=== PATIENT | female | born 1995 | race Caucasian/White ===

== ENCOUNTER 2016-09-07 00:13 | Emergency (ER) | payer OTHER ==
[2016-09-07] MEDS ORDERED: Morphine INJ* 4 MG/ML 1 ML SYRINGE IV ONE (01:33)
[2016-09-07] MEDS ORDERED: Ondansetron INJ* 2 MG/ML VIAL IV ONE (01:33)
[2016-09-07] MEDS ORDERED: Pantoprazole IV* 40 MG IV ONE (01:33)
[2016-09-07] MEDS ORDERED: NS 0.9% 1000 ML* 1,000 ML IV ONE (01:33)
[2016-09-07 02:00] LABS: Hematocrit 38 % (35-47); Hemoglobin 12.9 g/dl (12.0-16.0); Mean Corpuscular HGB Conc 34 g/dl (31-36); Mean Corpuscular Hemoglobin 32 pg (27-31); Mean Corpuscular Volume 94 fL (80-97); Mean Platelet Volume 8 um3 (7.4-10.4); Red Blood Count 3.99 10^6/ul (4.0-5.4); Red Cell Distribution Width 12 % (10.5-15); White Blood Count 6.5 10^3/ul (3.5-10.8)
[2016-09-07 02:15] LABS: ALT 12 U/L (7-52); AST 17 U/L (13-39); Albumin 4.2 g/dL (3.2-5.2); Alkaline Phosphatase 48 U/L (34-104); Anion Gap 3 mmol/L (2-11); BUN/Creatinine Ratio 13.6 (8-20); Blood Urea Nitrogen 12 mg/dL (6-24); C Reactive Protein < 1.00 mg/L (< 5.00); CO2 Carbon Dioxide 30 mmol/L (22-32); Calcium 9.6 mg/dL (8.6-10.3); Chloride 101 mmol/L (101-111); EGFR African American 102.4 (>60); EGFR Non-African American 79.6 (>60); Globulin 2.4 g/dL (2-4); Glucose 90 mg/dL (70-100); Lipase 23 U/L (11.0-82.0); Potassium 3.7 mmol/L (3.5-5.0); Sodium 134 mmol/L (133-145); Total Protein 6.6 g/dL (6.4-8.9)
--- NOTE | 2016-09-07 03:51 | ED ---
Genaro Ghosh Benjamin, scribed for Bianca Duval MD on 09/07/16 at 0315 . Abdominal Pain/Female - HPI Summary HPI Summary: 21yo female Pt states that she has had aching left neck pain that she has had for 3 days and today it has gotten worse. Pt reports limited neck ROM due to the pain. Pt is also c/o pain in her upper stomach area. Eating and drinking do not make it worse or better. Took Advil yesterday for pain. Caffeine intake has increased recently. - History of Current Complaint Chief Complaint: EDAbdPain Stated Complaint: NECK PAIN RIGHT SIDE/UPPER ABD PAIN Hx Obtained From: Patient Onset/Duration: Lasting Days - 3 days, Still Present, Worse Since - progressing Timing: Seconds Severity Initially: Mild Severity Currently: Moderate Pain Intensity: 7 Location: Epigastric Radiates: No Aggravating Factor(s): Nothing Alleviating Factor(s): Nothing Associated Signs and Symptoms: Positive: Other: - neck pain Allergies/Adverse Reactions: Allergies Allergy/AdvReac Type Severity Reaction Status Date / Time No Known Allergies Allergy Unverified 11/07/13 14:05 PMH/Surg Hx/FS Hx/Imm Hx Endocrine/Hematology History: 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 Denies: Hx Diabetes Cardiovascular History: Denies: Hx Congestive Heart Failure, Hx Hypertension Infectious Disease History: No Infectious Disease History: Denies: Traveled Outside the [place] in Last 30 Days - Family History Known Family History: Positive: Cardiac Disease, Hypertension, Other - Depression, OCD Negative: Diabetes, Renal Disease - Social History Occupation: Student Lives: Alone Alcohol Use: Weekly Substance Use Type: Reports: None Smoking Status (MU): Never Smoked Tobacco Review of Systems Constitutional: Negative Eyes: Negative ENT: Negative Cardiovascular: Negative Respiratory: Negative Positive: Abdominal Pain - epigastric. Negative: Vomiting, Diarrhea, Nausea Genitourinary: Negative Positive: Arthralgia - neck pain Skin: Negative Neurological: Negative Psychological: Normal All Other Systems Reviewed And Are Negative: Yes Physical Exam Triage Information Reviewed: Yes Vital Signs On Initial Exam: Initial Vitals Temp Pulse Resp BP Pulse Ox 97.9 F 87 16 117/78 99 09/07/16 00:18 09/07/16 00:18 09/07/16 00:18 09/07/16 00:18 09/07/16 00:18 Vital Signs Reviewed: Yes Appearance: Positive: Well-Appearing, No Pain Distress, Well-Nourished Skin: Positive: Warm, Skin Color Reflects Adequate Perfusion, Dry Head/Face: Positive: Normal Head/Face Inspection Eyes: Positive: EOMI, WU ENT: Positive: Hearing grossly normal, Pharynx normal, TMs normal Neck: Positive: Nuchal Rigidity, Tenderness @ - Multiple spasmodic areas of the neck, Other: - Multiple spasmodic areas of the neck Respiratory/Lung Sounds: Positive: Clear to Auscultation, Breath Sounds Present. Negative: Rales, Rhonchi Cardiovascular: Positive: RRR. Negative: Murmur Abdomen Description: Positive: Soft, Other: - epigastric. Negative: Distended, Guarding Bowel Sounds: Positive: Present Musculoskeletal: Positive: Strength/ROM Intact Neurological: Positive: Sensory/Motor Intact, Alert, Oriented to Person Place, Time, CN Intact II-III Psychiatric: Negative: Affect/Mood Appropriate - Angela Coma Scale Coma Scale Total: 15 Diagnostics - Vital Signs Vital Signs Temp Pulse Resp BP Pulse Ox 09/07/16 02:47 80 16 99/59 09/07/16 01:59 68 16 98 09/07/16 01:46 16 09/07/16 00:18 97.9 F 87 16 117/78 99 - Laboratory Lab Results: Lab Results 09/07/16 09/07/16 Range/Units 01:47 01:47 WBC 6.5 (3.5-10.8) 10^3/ul RBC 3.99 L (4.0-5.4) 10^6/ul Hgb 12.9 (12.0-16.0) g/dl Hct 38 (35-47) % MCV 94 (80-97) fL MCH 32 H (27-31) pg MCHC 34 (31-36) g/dl RDW 12 (10.5-15) % Plt Count 197 (150-450) 10^3/ul MPV 8 (7.4-10.4) um3 Neut % (Auto) 43.0 (38-83) % Lymph % (Auto) 48.8 H (25-47) % Allen % (Auto) 6.7 (1-9) % Eos % (Auto) 1.0 (0-6) % Baso % (Auto) 0.5 (0-2) % Absolute Neuts (auto) 2.8 (1.5-7.7) 10^3/ul Absolute Lymphs (auto) 3.2 (1.0-4.8) 10^3/ul Absolute Monos (auto) 0.4 (0-0.8) 10^3/ul Absolute Eos (auto) 0.1 (0-0.6) 10^3/ul Absolute Basos (auto) 0 (0-0.2) 10^3/ul Absolute Nucleated RBC 0 10^3/ul Nucleated RBC % 0 Sodium 134 (133-145) mmol/L Potassium 3.7 (3.5-5.0) mmol/L Chloride 101 (101-111) mmol/L Carbon Dioxide 30 (22-32) mmol/L Anion Gap 3 (2-11) mmol/L BUN 12 (6-24) mg/dL Creatinine 0.88 (0.51-0.95) mg/dL Est GFR ( Amer) 102.4 (>60) Est GFR (Non-Af Amer) 79.6 (>60) BUN/Creatinine Ratio 13.6 (8-20) Glucose 90 (70-100) mg/dL Calcium 9.6 (8.6-10.3) mg/dL Total Bilirubin 0.30 (0.2-1.0) mg/dL AST 17 (13-39) U/L ALT 12 (7-52) U/L Alkaline Phosphatase 48 (34-104) U/L C-Reactive Protein < 1.00 (< 5.00) mg/L Total Protein 6.6 (6.4-8.9) g/dL Albumin 4.2 (3.2-5.2) g/dL Globulin 2.4 (2-4) g/dL Albumin/Globulin Ratio 1.8 (1-3) Lipase 23 (11.0-82.0) U/L Beta HCG, Quant Pending Result Diagrams: 09/07/16 01:47 09/07/16 01:47 Lab Statement: Any lab studies that have been ordered have been reviewed, and results considered in the medical decision making process. Abdominal Pain Fem Course/Dx - Course Course Of Treatment: trigger points on neck on right periscapular for the most point and epigastric pain much better after flexeril and meds for gastritis. Ok to go, - Diagnoses Provider Diagnoses: Gastritis, Cervical muscle strain Discharge - Discharge Plan Condition: Stable Disposition: HOME Prescriptions: Cyclobenzaprine TAB* [Flexeril 10 MG TAB*] 10 mg PO TID PRN #30 tab PRN Reason: Spasms Omeprazole CAP* [Prilosec CAP* 20 MG] 20 mg PO DAILY #14 cap.dr Patient Education Materials: Gastritis (ED), Cervical Strain (ED) Referrals: Adonis Rasheed, SOLID SURFACE FABRICATOR [Primary Care Provider] - The documentation as recorded by the Genaro ryder Benjamin accurately reflects the service I personally performed and the decisions made by me, Bianca Duval MD.
[2016-09-07 03:55] VITALS: BP 98/63
== END 2016-09-07 03:54 | disposition home or self-care (01) ==
LOC: ED 00:13
DX: K29.70 Gastritis, unspecified, without bleeding (principal); S16.1XXA Strain of muscle, fascia and tendon at neck level, initial encounter; M54.2 Cervicalgia; R10.13 Epigastric pain; X58.XXXA Exposure to other specified factors, initial encounter; Y93.9 Activity, unspecified; Y92.9 Unspecified place or not applicable; Y99.8 Other external cause status
CPT/HCPCS: 36415; 80053; 83690; 84702; 85025; 86140; 99283; J2270; J2405

== ENCOUNTER 2018-10-23 07:02 | Emergency (ER) | payer OTHER ==
[2018-10-23 07:14] VITALS: BP 99/59
--- NOTE | 2018-10-23 07:24 | UC ---
Hand/Wrist HPI - HPI Summary HPI Summary: 23 yo female 3 weeks s/p injuring Right Ring Finger after slipping and falling on stairs at home She is right handed since injury has been unable to extend at DIP and has decreased flexion at DIP Initially had significant swelling and bruising skin not broken du to injury - History Of Current Complaint Chief Complaint: UCUpperExtremity Stated Complaint: FINGER INJURY Time Seen by Provider: 10/23/18 07:18 Hx Obtained From: Patient Hx Last Menstrual Period: 2 weeks ago, has implant Onset/Duration: Sudden Onset Severity Initially: Moderate Severity Currently: Mild Pain Intensity: 3 Pain Scale Used: 0-10 Numeric Character Of Pain: Dull, Aching Aggravating Factor(s): Movement Alleviating Factor(s): Rest Associated Signs And Symptoms: Positive: Swelling Related History: Dominant Hand Right, Other: - decreased ROM - Allergies/Home Medications Allergies/Adverse Reactions: Allergies Allergy/AdvReac Type Severity Reaction Status Date / Time Antifungal - Imidazole Allergy See Comment Verified 10/23/18 07:14 Home Medications: Home Medications Dextroamphetamine/Amphetamine [Adderall 20 mg Tablet] 1 tab PO DAILY 10/23/18 [ History Confirmed 10/23/18] Sertraline* [Zoloft*] 50 mg PO DAILY 10/23/18 [History Confirmed 10/23/18] PMH/Surg Hx/FS Hx/Imm Hx Previously Healthy: Yes - Surgical History Surgical History: None - Family History Known Family History: Positive: Cardiac Disease, Hypertension, Other - Depression, OCD Negative: Diabetes, Renal Disease - Social History Alcohol Use: Occasionally Substance Use Type: None Smoking Status (MU): Never Smoked Tobacco Review of Systems All Other Systems Reviewed And Are Negative: Yes Constitutional: Positive: Negative Skin: Positive: Bruising - initially Eyes: Positive: Negative ENT: Positive: Negative Respiratory: Positive: Negative Cardiovascular: Positive: Negative Gastrointestinal: Positive: Negative Genitourinary: Positive: Negative Musculoskeletal: Positive: Arthralgia - RIF, Decreased ROM - RIF Neurological: Positive: Negative Psychological: Positive: Negative Physical Exam Triage Information Reviewed: Yes Appearance: Well-Appearing, No Pain Distress, Well-Nourished Vital Signs: Initial Vital Signs Temp 98.3 F 10/23/18 07:09 Pulse 82 10/23/18 07:09 Resp 16 10/23/18 07:09 BP 99/59 10/23/18 07:09 Pulse Ox 96 10/23/18 07:09 Vital Signs Reviewed: Yes Eyes: Positive: Conjunctiva Clear ENT: Positive: Hearing grossly normal, Uvula midline. Negative: Nasal congestion, Nasal drainage, Trismus, Muffled voice, Hoarse voice Dental Exam: Normal Neck: Positive: Supple Respiratory: Positive: Lungs clear, Normal breath sounds, No respiratory distress, No accessory muscle use Cardiovascular: Positive: RRR, No Murmur Musculoskeletal: Positive: ROM Limited @ - RIF DIP, Edema @ - DP RIF, Other: - mallet finger deformity RIF Neurological: Positive: Alert Psychological Exam: Normal Skin Exam: Normal Images Hands: 1 - swollen, unable to passively extend , skin intact Procedures - Splinting Right Upper Extremity Location: RIGHT INDEX FINGER DIP Pre-Made Type: #4 STAX splint Splint: see above Pre-Proc Neuro Vasc Exam: normal Post-Proc Neuro Vasc Exam: normal Splint Applied by Provider: Wayne Holley Diagnostics - Radiology No standard instances Radiology Interpretation Completed By: Radiologist Summary of Radiographic Findings: right index finger: Dorsal plate fracture proximal end distal phalanx of the index finger Hand/Wrist Course/Dx - Differential Dx/Diagnosis Provider Diagnosis: Closed mallet fracture of distal phalanx of right index finger Discharge ED - Sign-Out/Discharge Documenting (check all that apply): Patient Departure All imaging exams completed and their final reports reviewed: Yes - Discharge Plan Condition: Stable Disposition: HOME Patient Education Materials: Jammed Finger (ED) Referrals: Lilia Kemp MD [Medical Doctor] - As Soon As Possible Additional Instructions: you have a MALLET FINGER DEFORMITY from a fracture that occurred involving the distal phalanx of the right index finger you need to follow up with an orthopedist as this may need surgical repait wear splint and if you need to change it use the technique discussed - Billing Disposition and Condition Condition: STABLE Disposition: Home
== END 2018-10-23 07:53 | disposition home or self-care (01) ==
LOC: UCEAST 07:02
DX: S62.630A Displaced fracture of distal phalanx of right index finger, initial encounter for closed fracture (principal); W10.9XXA Fall (on) (from) unspecified stairs and steps, initial encounter; Y92.019 Unspecified place in single-family (private) house as the place of occurrence of the external cause
CPT/HCPCS: 73140; 99211; G0463

== ENCOUNTER 2018-11-08 08:12 | Day surgery (SDC) | payer OTHER ==
[~2018-11-08 08:12] MED LIST: Buffered Lidocaine 1% SYRIN* 1 ML/SYRINGE INTRADERM ONE; Famotidine IV* 10 MG/ML 2 ML (20 mg) IV ONE; Famotidine IV* 10 MG/ML 2 ML (20 mg) ONE; Lactated Ringers 1000 ML Bag* 1,000 ML IV SCH; ceFAZolin 2 GM PREMIX in ORs 2 GM/50 ML BAG ONE
[2018-11-08] MEDS ORDERED: Midazolam* 1 MG/ML 5 ML VIAL (5 MG) ONE (08:37)
[2018-11-08] MEDS ORDERED: Naloxone* 0.4 MG/ML 1 ML VIAL IV PRN (09:49)
[2018-11-08] MEDS ORDERED: oxyCODONE TAB* 5 MG TAB PO PRN (09:49)
[2018-11-08] MEDS ORDERED: Acetaminophen TAB* 325 MG PO PRN (09:49)
[2018-11-08] MEDS ORDERED: HYDROmorphone INJ1* 1 MG/ML SYRINGE ONE (10:08)
[2018-11-08] MEDS ORDERED: Lidocaine 1% INJ* 10 MG/ML 30 ML SDV ONE (10:17)
[2018-11-08] MEDS ORDERED: Propofol* 10 MG/ML 20 ML BTL ONE ×2 (10:19→10:51)
[2018-11-08] MEDS ORDERED: Lidocaine 2% PF * 5 ML VIAL ONE (10:19)
[2018-11-08] MEDS ORDERED: Ketorolac INJ* 30 MG/ML 1 ML VIAL ONE (10:19)
[2018-11-08] MEDS ORDERED: Dexamethasone IV* 4 MG/ML 1 ML (4 MG) ONE (10:19)
[2018-11-08] MEDS ORDERED: Ondansetron INJ* 2 MG/ML VIAL ONE (10:19)
[2018-11-08 11:42] VITALS: BP 111/75
--- NOTE | 2018-11-08 15:40 | OP ---
OPERATIVE NOTE: DATE OF OPERATION: 11/08/18 DATE OF : 89 SURGEON: Tate Sharma MD STUDENT FINANCE SPECIALIST: COREY Chou A physician financial planning assistant was required for patient positioning, instrumentation. ANESTHESIOLOGIST: Dr. Santa Vaughn. ANESTHESIA: LMA general anesthesia, local anesthesia, digital nerve block using lidocaine 1% without epinephrine. PRE-OP DIAGNOSIS: Right index finger bony mallet dorsal base of distal phalanx fracture, subacute or chronic. POST-OP DIAGNOSIS: Right index finger bony mallet dorsal base of distal phalanx fracture, subacute or chronic. OPERATIVE PROCEDURE: Closed reduction percutaneous pinning of right index finger distal phalanx bony mallet fracture. ANTIBIOTICS: 2 g Ancef IV. IV FLUIDS: See anesthesia note. SPECIMEN: None. IMPLANTS: Synthes K-wires. Two K-wires of size 0.045 were used. One K-wire of size 0.035 was used. PROCEDURE TIME: Approximately 35 minutes. TOURNIQUET TIME: Approximately 25-31 minutes using a finger tourniquet COMPLICATIONS: None. ESTIMATED BLOOD LOSS: Minimal. 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 There was a delay in her seeking medical attention. The patient eventually was seen at urgent care in the emergency room on 10/23/18 and then she presented to our clinic on approximately 11/02/18. The patient was noted to have a displaced bony mallet fracture. There might have been some trace subluxation, but no significant subluxation of the DIP joint. Discussed treatment, namely closed reduction percutaneous pinning using extension block technique versus open reduction internal fixation. Described some pros and cons of each technique. My plan was to close reduce and percutaneous pin if that was feasible and that technique was the patient's preference as well. Discussed risks and potential complications of surgery including bleeding, infection, nerve or blood vessel, PIP joint swelling, lag, stiffness, pain, loss of function, failure of hardware, need for removal of hardware surgically. Discussed postoperative limitations and restrictions. It should be stated the patient was notable for being very ligamentously lax, especially in the fingers. Multiple fingers throughout the patient's hand are capable of some swan neck hyperextension of the PIP joint. This was inclusive of the right index finger. DESCRIPTION OF PROCEDURE: In preoperative holding, the patient signed a written consent. I reviewed the relevant anatomy with some drawings. The patient's operative finger was marked with a marking pen. The patient was brought into the operating room and kept on stretcher. LMA anesthesia. Tourniquet was placed about the right upper arm but never inflated. Hand table was applied. Right upper extremity was prepped and draped. Surgical time-out performed. Mini C-arm image was taken. It showed that just full extension of the DIP joint did not reduce the fracture. I next located the fracture site with an 18-gauge needle from the dorsal radial side and placed that into the fracture site to debride some fibrotic tissue. I decided the 18-gauge was a little bit large for the patient's small fingers, so I used a 20-gauge needle, placed it into the fracture site, and moved it back and forth debriding any fibrous tissue that had accumulated over the last 6 weeks. Early in the procedure, I had a couple drops of blood exit the skin, so I placed a Tourni-Cot. I next fully flexed the DIP joint. I placed a K-wire from dorsal to volar, the so- called extension blocking pin. I placed it bicortically. I fully hyperextended the DIP joint, which I believe made that pin move slightly in bone. I think initially it had a steep trajection, closer to perhaps 20 to 30 degrees with the middle phalanx shaft. With a little bit of movement, it became more 45 degrees. With extension of the distal phalanx against the pin, the fracture site fully reduced. I next extended the DIP joint fully, although I tried to avoid too much hyperextension, which was certainly possible. I then placed a second K-wire, 0.045 in size, across the DIP joint. It crossed the middle phalanx head and then exited the bone. AP, lateral, and oblique views showed excellent reduction. There might have been much less than 1 mm of displacement, but in order to improve my reduction even more, I used a smaller K-wire, 0.035 in size , and placed it across the fracture site. It ended up slightly distal to the fracture site, but appeared to hold the fracture in even more reduced position. I liked my reduction. Final mini C-arm films were obtained. Very congruent subchondral bone on lateral view. The pins were cut and pin caps were placed. A Xeroform, 2x2's, Kerlix, then Coban. I then placed an Alumafoam volar splint with the DIP joint fully extended , but the PIP joint flexed. This was intentional, to immobilize the PIP joint, that we do not normally immobilize, given the patient's swan necking preoperatively. The patient was awakened, extubated, and transferred to the PACU. DISPOSITION: The patient was discharged home with Clarion as needed for pain control and 7 days of oral antibiotics. The patient will follow up with me next week in clinic. We will obtain x-rays at that clinic visit. The patient is to maintain the operative dressing until she follows up in clinic. She is not to use that hand for work. [id number]/CPS #: [id number] MTDD
== END 2018-11-08 12:41 | disposition home or self-care (01) ==
LOC: OR 08:12
PROVIDERS: ATTEND Orthopaedic Surgery
DX: S62.630A Displaced fracture of distal phalanx of right index finger, initial encounter for closed fracture (principal); W19.XXXA Unspecified fall, initial encounter; Y92.9 Unspecified place or not applicable; Z72.0 Tobacco use; F41.8 Other specified anxiety disorders; F31.9 Bipolar disorder, unspecified
CPT/HCPCS: 76000; 81025; C1776; J0690; J1100; J1170; J1885; J2250; J2405; J2704

== ENCOUNTER → 2018-12-29 11:09 | Day surgery (SDC) | payer OTHER ==
[~2018-12-29 11:09] MED LIST changes: +Dexamethasone IV* 4 MG/ML 1 ML (4 MG) IV SLOW PU ONE; +Dexamethasone IV* 4 MG/ML 1 ML (4 MG) ONE; +DiMENhydriNATE IV* 50 MG/ML VIAL IV PUSH PRN; +KETAMINE HCL* 50 MG/ML 10 ML VIAL ONE; +Ketorolac INJ* 30 MG/ML 1 ML VIAL ONE; +Lidocaine 1% INJ* 10 MG/ML 30 ML SDV ONE; +Lidocaine 2% PF * 5 ML VIAL ONE; +Midazolam* 1 MG/ML 2 ML VIAL (2 MG) ONE; +Midazolam* 1 MG/ML 5 ML VIAL (5 MG) ONE; +Naloxone* 0.4 MG/ML 1 ML VIAL IV PRN; +Ondansetron INJ* 2 MG/ML VIAL ONE; +Phenylephrine 40 MCG/ML SYRINGE ONE; +Propofol* 10 MG/ML 20 ML BTL ONE; +Scopolamine 1.5 mg* PATCH TRANSDERM PRN; -ceFAZolin 2 GM PREMIX in ORs 2 GM/50 ML BAG ONE; +ceFAZolin 2 GM in NS PREMIX(*) 2 GM/100 ML BAG IVPB ONE; +fentaNYL* 50 MCG/ML 2 ML VIAL (100 MCG VIAL) IV PRN; +fentaNYL* 50 MCG/ML 2 ML VIAL (100 MCG VIAL) ONE; +fentaNYL* 50 MCG/ML 5 ML VIAL (250 MCG VIAL) ONE; +oxyCODONE/Acetamin 5/325 MG* TAB ONE; +oxyCODONE/Acetamin 5/325 MG* TAB PO PRN
[2018-12-29] MEDS: Ondansetron INJ* 2 MG/ML VIAL IV PRN ×2 (12:39→20:33)
[2018-12-29 21:23] VITALS: BP 122/74
--- NOTE | 2018-12-31 05:02 | OP ---
OPERATIVE REPORT: DATE OF OPERATION: 12/29/18 DATE OF : 89 SURGEON: Tate Sharma MD. AUDIT CLERKS SUPERVISOR: COREY Forte A physician therapy assistant was required for the length of the procedure for assistance with patient positi oning, retraction, and closure. ANESTHESIOLOGIST: Dr. Zeyad Marsh. ANESTHESIA: General anesthesia, local anesthesia using 5 cc of lidocaine 1% without epinephrine. PRE-OP DIAGNOSES: 1. 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 2. Status post closed reduction percutaneous pinning procedure right index finger distal phalanx, . POST-OP DIAGNOSES: 1. 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 2. Status post closed reduction percutaneous pinning procedure right index finger distal phalanx, . PROCEDURE: Open reduction internal fixation right index finger distal phalanx avulsion fracture. ANTIBIOTICS: Ancef 2 g IV. IV FLUIDS: See anesthesia note. SKIN TO SKIN TIME: 69 minutes. TOURNIQUET TIME: 72 minutes right upper arm tourniquet, 250 mmHg. RADIATION: Mini C-arm use. EXPOSURE TIME: Not recorded by me. SPECIMEN: None. IMPLANT: [employer] 1 hole claw plate for bony mallet injuries with a 1.2 mm screw through. COMPLICATIONS: None. ESTIMATED BLOOD LOSS: Minimal. INDICATIONS FOR PROCEDURE: The patient is a 23-year-old woman, who first presented to me subacutely for a right index finger bony mallet finger injury. It occurred early in September and she presented ap proximately 6 weeks later on 11/02/18 in clinic. At that time, I discussed operative and nonoperativ e treatment. I discussed closed reduction percutaneous pinning or open reduction internal fixation a nd the pros and cons of each as well as risks and benefits of procedure. On 11/08/18, the patient underwent a successful closed reduction percutaneous pinning procedure. Thi s surgical option was chosen both because it was less invasive and closed reduction was feasible as w ell as the patient preference. At the time of that surgical procedure we discussed possible risk of failure of fixation or reduction and need for revision surgery. The patient had an uncomplicated postoperative course after that procedure. She banged her finger se veral times, but that often happens. She wore her brace that she was supposed to. One of the pins c erika out at home. I left the pins intact for approximately 5 weeks. After the pins were removed the patient described a extensor lag and spoken to the patient pre and postoperatively about reduction of range of motion with either surgical procedure. The patient described much continued pain about the DIP joint and x-rays obtained at the patient's most recent clinic visit showed loss of reduction and no sign of definitive bony union. There did certainly seem to be some element of hazy callus-like m aterial about the fracture site. We discussed a continued observation. The patient did have active extension present at the DIP joint, so I thought it is feasible that this might continue to a nonpain ful fibrous union or a bony union eventually. However, given the significant being 1 mm or so amount of offset and the pain, the patient favored the more definitive surgical procedure, open reduction i nternal fixation. I discussed pros and cons and procedure as well as risks and potential complications. Risks and pote ntial complications include other standard bleeding, infection, nerve or blood vessel injury. More s pecific to the surgery they involve altered nail plate growth, a prominent painful hardware, need for removal of hardware, loss of reduction and fixation. Given the chronicity of this injury now 3 months from the initial injury and described needing to yohana e down some fibrous union that the case would be more complicated for that reason. DESCRIPTION OF PROCEDURE: In preoperative holding the patient signed the written consent. Operative finger was marked in preoperative holding. Due to an instrumentation sterility problem, there was a delay in the start of the case for multiple hours but that was worked out and we brought the patient back to the operating room. The patient was brought back to the operating room and kept on stretcher. Hand table was applied. P james was sedated and intubated. Tourniquet was placed about the right upper arm. Right upper extr emity was prepped and draped. Surgical timeout was performed. Esmarch was applied and tourniquet wa s elevated to 250 mmHg. I made my skin incision. I started with an S-shaped incision with the transverse limb about the exte nsor crease at the level of the DIP joint and a proximal ulnar and distal radial legs to that S. Lat er I extended a leg of that incision distal on ulna. This made this incision a hybrid of an S and an H-shaped incision, less invasive than an H-shaped incision. I incised skin only, careful not to disrupt extensor tendon. Bovie electrocautery was not required a nd dissected along the extensor tendon. The extensor tendon itself looked fully intact including usi ng my loupes for visualization. Used mini C-arm to identify the location in the extensor mechanism of the avulsed bony fragment. Bimal ntified a spot just distal to this. Dissected as atraumatically as possible distal to this bony frag ment. This level transversely was just 1 mm or so proximal to the germinal matrix. I dissected down to the bone distally and pealed up the periosteum and germinal matrix distally, so as to minimally d isrupt the general matrix. With regards to the fracture I debrided some fibrous tissue with a micro curette along with a [place]. Dissected maximally free that bony avulsion fracture fragment. I next reduced the bony fragment. Considered a pointed fracture a clamp but did not want to destroy the small avulsed bony fragment. Then I used my fingers to manipulate the fragment and most optimall y reduce it. This was the most difficult part of the case. When the reduction was adequate I placed a 0.035 K-wire across the fracture site, from dorsal to volar. The reduction was not perfect but wa s good enough for placement now of the plate. With the K-wire holding provisional reduction, I situa raiza the plate. I utilized the mini C-arm to determine when the plate was sufficiently proximal dista l located as well as central. The plate was placed. I drilled eccentrically with a 1-mm drill and nel perez placed a screw. As I was advancing the screw I removed the K-wire, so that the K-wire reduction would not inhibit the best possible plate reduction. Plate was brought down nicely to bone. I took mini C-arm images. They showed screw to be nicely bicortical, but not overly prominent volarl y. They showed plate flat on bone. They showed the proximal claws of the plate to be directly on th e avulsed bony fragment. There was some concern that those prongs could interfere with the DIP joint and the head of the middle phalanx. However that claw plate could not be placed any more distal jemal n it was so I was happy with that position. While the reduction of the fracture fragment was not perfect, it was excellent, with bone apposed per fectly to bone and a minimum of step off. The reduction with plate obtained was certainly superior t o any provisional reduction obtained during the case. This is likely due at least to some degree bec ause of the mismatch between the 2 fracture fragments given the 3 months that have transpired since i kaylah. I took x-rays AP and lateral that confirmed excellent placement of hardware and excellent reduction. The finger visually looked very nicely extended. Irrigation of wound. I should state that early in the case after I incised the skin, I had retracted the skin edges with s imple stitches using nylon 6.0 suture. This afforded us excellent exposure. At this point in the ca se I cut the stitches. I then closed the skin with simple stitches using nylon 4.0 sutures. I next took several final x-ray images. I injected local anesthesia, 5 cc of 1% lidocaine without epinephrine about the digital ner ves as well as in the flexor tendon sheath to the index finger. Xeroform, 2x2's, one-inch Kerlix, finger splint followed by another [place]. Patient was awake and ext ubated and transferred to the PACU. DISPOSITION: The patient was discharged home when medically stable. Oxycodone for pain. Dressing i ntact for 3 days. The patient will wear a finger splint at all times to keep that finger straight to facilitate healing. The patient will follow up with me in 10-14 days postoperatively. She starts a new job 3 days postoperatively and she can call me with any questions or concerns. [id number]/[facility] #: [id number]
== END | disposition home or self-care (01) ==
LOC: OR 11:09
PROVIDERS: ATTEND Orthopaedic Surgery
DX: S62.630P Displaced fracture of distal phalanx of right index finger, subsequent encounter for fracture with malunion (principal); M20.011 Mallet finger of right finger(s); W19.XXXD Unspecified fall, subsequent encounter; Y92.9 Unspecified place or not applicable; F17.210 Nicotine dependence, cigarettes, uncomplicated; F43.10 Post-traumatic stress disorder, unspecified; F31.9 Bipolar disorder, unspecified; F90.9 Attention-deficit hyperactivity disorder, unspecified type
CPT/HCPCS: 81025; A9270-GY; C1713; C1776; J0690; J1100; J1885; J2250; J2405; J2704; J3010

== ENCOUNTER 2022-09-21 20:32 | Inpatient (IN) ==
[2022-09-21] MEDS ORDERED: Haloperidol 5 mg/ml SDV IV/IM 5 MG/ML AMP IM PRN (23:19)
[2022-09-21] MEDS ORDERED: LORazepam 2 mg VIAL 1 ml IM PRN (23:22)
[2022-09-21] MEDS ORDERED: Lorazepam PYXIS KEY PRN (23:22)
[2022-09-22] MEDS ORDERED: LORazepam 2 mg VIAL 1 ml IV PUSH ONE (08:28)
[2022-09-22] MEDS ORDERED: Lorazepam PYXIS KEY PRN (08:28)
[2022-09-22] MEDS ORDERED: LORazepam 2 mg VIAL 1 ml ONE (08:34)
[2022-09-22] MEDS: OLANZapine 5 mg TAB *ODT PO SCH ×2 (20:23→21:11)
[2022-09-23] MEDS: Nicotine GUM 4MG FRUIT FLAVOR PO PRN ×3 (15:36→19:21)
[2022-09-23] MEDS ORDERED: Nicotine GUM 4MG FRUIT FLAVOR PO ONE (15:36)
[2022-09-23] MEDS: OLANZapine 5 mg TAB *ODT PO SCH (19:29)
[2022-09-24] MEDS: Nicotine GUM 4MG FRUIT FLAVOR PO PRN ×2 (08:40→15:12)
[2022-09-24] MEDS ORDERED: OLANZapine 10 mg TAB*ODT PO STA (10:40)
[2022-09-24] MEDS ORDERED: Nicotine PATCH 21 MG/24 HR PATCH ONE (11:32)
[2022-09-24] MEDS: Nicotine PATCH 21 MG/24 HR PATCH TRANSDERM SCH (14:14)
[2022-09-24] MEDS ORDERED: OLANZapine 5 mg TAB *ODT PO PRN (14:39)
[2022-09-24] MEDS ORDERED: chlorproMAZINE 25 MG/ML 2 ML (50 MG) IM STA (15:23)
[2022-09-24] MEDS ORDERED: chlorproMAZINE 25 MG/ML 2 ML (50 MG) ONE (15:25)
[2022-09-25] MEDS: OLANZapine 10 mg TAB*ODT PO SCH ×2 (00:36→19:41)
[2022-09-25] MEDS: Nicotine PATCH 21 MG/24 HR PATCH TRANSDERM SCH (08:22)
[2022-09-25] MEDS: Nicotine GUM 4MG FRUIT FLAVOR PO PRN ×3 (11:44→20:23)
[2022-09-26] MEDS: Nicotine PATCH 21 MG/24 HR PATCH TRANSDERM SCH (07:11)
[2022-09-26] MEDS: Nicotine GUM 4MG FRUIT FLAVOR PO PRN ×6 (07:13→22:06)
[2022-09-26] MEDS: OLANZapine 10 mg TAB*ODT PO SCH (20:14)
[2022-09-27] MEDS: Nicotine GUM 4MG FRUIT FLAVOR PO PRN ×5 (05:39→20:35)
[2022-09-27] MEDS: Nicotine PATCH 21 MG/24 HR PATCH TRANSDERM SCH (07:35)
[2022-09-27] MEDS: OLANZapine 10 mg TAB*ODT PO SCH (20:15)
[2022-09-28] MEDS: Nicotine PATCH 21 MG/24 HR PATCH TRANSDERM SCH (07:47)
[2022-09-28 08:14] LABS: HDL Cholesterol 59.2 mg/dL
[2022-09-28] MEDS: Al Hydrox/Mg Hydrox/Simet LIQ 30 ML UDC PO PRN (08:40)
[2022-09-28] MEDS: Nicotine GUM 4MG FRUIT FLAVOR PO PRN ×4 (08:40→17:25)
[2022-09-28 10:51] LABS: Lithium 0.29 mmol/L (0.6-1.2)
[2022-09-28] MEDS: OLANZapine 10 mg TAB*ODT PO SCH (20:25)
[2022-09-29] MEDS: Nicotine PATCH 21 MG/24 HR PATCH TRANSDERM SCH (07:34)
[2022-09-29] MEDS: Nicotine GUM 4MG FRUIT FLAVOR PO PRN ×4 (07:35→16:41)
[2022-09-29] MEDS: Al Hydrox/Mg Hydrox/Simet LIQ 30 ML UDC PO PRN (07:49)
[2022-09-29] MEDS: OLANZapine 10 mg TAB*ODT PO SCH (20:09)
[2022-09-30] MEDS: Nicotine GUM 4MG FRUIT FLAVOR PO PRN ×3 (08:42→15:55)
[2022-09-30] MEDS: Nicotine PATCH 21 MG/24 HR PATCH TRANSDERM SCH (10:48)
[2022-09-30] MEDS ORDERED: OLANZapine 10 mg TAB*ODT PO PRN (14:52)
[2022-09-30] MEDS: Al Hydrox/Mg Hydrox/Simet LIQ 30 ML UDC PO PRN (22:05)
[2022-10-01] MEDS: Nicotine GUM 4MG FRUIT FLAVOR PO PRN ×3 (08:11→18:05)
[2022-10-01] MEDS: Nicotine PATCH 21 MG/24 HR PATCH TRANSDERM SCH (08:13)
[2022-10-01] MEDS: Al Hydrox/Mg Hydrox/Simet LIQ 30 ML UDC PO PRN ×2 (08:27→21:44)
[2022-10-02] MEDS: Nicotine GUM 4MG FRUIT FLAVOR PO PRN ×2 (08:24→16:09)
[2022-10-02] MEDS: Nicotine PATCH 21 MG/24 HR PATCH TRANSDERM SCH (08:24)
[2022-10-03] MEDS: Nicotine PATCH 21 MG/24 HR PATCH TRANSDERM SCH (08:22)
[2022-10-04] MEDS: Nicotine GUM 4MG FRUIT FLAVOR PO PRN ×3 (09:32→19:17)
[2022-10-04] MEDS: Nicotine PATCH 21 MG/24 HR PATCH TRANSDERM SCH (09:41)
[2022-10-05] MEDS: Nicotine PATCH 21 MG/24 HR PATCH TRANSDERM SCH (08:29)
[2022-10-05] MEDS: Nicotine GUM 4MG FRUIT FLAVOR PO PRN (08:57)
[2022-10-05] MEDS: Al Hydrox/Mg Hydrox/Simet LIQ 30 ML UDC PO PRN (20:21)
[2022-10-06] MEDS: Nicotine PATCH 21 MG/24 HR PATCH TRANSDERM SCH (09:54)
[2022-10-06] MEDS ORDERED: OLANZapine 5 mg TAB *ODT PO PRN (13:43)
[2022-10-07] MEDS: Nicotine PATCH 21 MG/24 HR PATCH TRANSDERM SCH (12:21)
[2022-10-08] MEDS: Nicotine PATCH 21 MG/24 HR PATCH TRANSDERM SCH (10:40)
[2022-10-09] MEDS: Nicotine PATCH 21 MG/24 HR PATCH TRANSDERM SCH (08:54)
[2022-10-10] MEDS: Nicotine PATCH 21 MG/24 HR PATCH TRANSDERM SCH (08:07)
[2022-10-11] MEDS: Nicotine PATCH 21 MG/24 HR PATCH TRANSDERM SCH (08:12)
[2022-10-12] MEDS: Nicotine PATCH 21 MG/24 HR PATCH TRANSDERM SCH (08:19)
[2022-10-13] MEDS: Nicotine PATCH 21 MG/24 HR PATCH TRANSDERM SCH (08:17)
[2022-10-14 08:56] VITALS: BP 113/78
[2022-10-14] MEDS: Nicotine PATCH 21 MG/24 HR PATCH TRANSDERM SCH (09:25)
== END 2022-10-14 09:35 | DRG 753 ==
LOC: ED 20:32 → EDHOLD 23:12 → BSU 09-22 03:40
PROVIDERS: ADMIT Psychiatry & Neurology Psychiatry; ATTEND Psychiatry & Neurology Psychiatry